=== PATIENT | female | born 2000 | race African-American/Black ===

== ENCOUNTER 2022-05-23 11:25 | Inpatient (IN) | payer SELFPAY ==
[2022-05-23 11:30] VITALS: BP 102/61; PULSE 75; RESP 14; O2SAT 100; BMI 20.3
--- NOTE | 2022-05-23 11:40 | ED.C_ITS ---
HPI - Psych General: Chief Complaint: Psychiatric Symptoms Stated Complaint: SI Time Seen by Provider: 05/23/22 11:32 Source: patient Mode of arrival: EMS Limitations: no limitations History of Present Illness: Patient is a nice 21-year-old female presents to ED today for concerns of suicidal ideations. Patient states these thoughts have progressively worsened over the past several weeks. She states she did go through a break-up a few months ago that she believes may have triggered it. Patient states she is going to sleep with knives. She has thoughts of wanting to run her car into oncoming traffic or overdosing on medication. Patient has no previous suicide attempts. No self harming behaviors. Denies drug or alcohol use. She is not homicidal. She is not experiencing hallucinations. Patient carries no previous psychiatric diagnoses and currently does not take any medications. MD complaint: suicidal ideation and feels depressed Onset (ago): day(s) Duration: constant History of same: Yes Associated psychiatric symptoms: depression and suicidal ideation Associated symptoms: Reports depression and suicidal ideation; Deny auditory hallucinations, visual hallucinations or homicidal ideation Treatments prior to arrival: none If self harm: admits thoughts of self harm Review of Systems Const: Denies: fever(s) or chills Card: Denies: chest pain, palpitations, lightheadedness or syncope Resp: Denies: dyspnea GI: Denies: abdominal pain, nausea, vomiting or diarrhea Skin/Breast: Denies: rash Neuro: Denies: headache(s) Psych: Reports: depression and suicidal ideation; Denies: anxiety, panic attacks, visual hallucinations, auditory hallucinations or homicidal ideation Physical Exam Const: COMMON NORMALS: no acute distress, patient oriented x3, alert and well nourished GENERAL APPEARANCE: cooperative and well kempt Resp: COMMON NORMALS: normal respiratory effort and clear to auscultation bilaterally AUSCULTATION: clear to auscultation bilaterally Cardio: COMMON NORMALS: regular rate and regular rhythm RATE: regular rate RHYTHM: regular rhythm Neuro: COMMON NORMALS: patient oriented x3 SENSORIUM/ORIENTATION: Yes alert Psych: COMMON NORMALS: mental status grossly normal, Normal thought process present, cooperative, normal affect, speech normal, activity/motor behavior normal, denies hallucinations and denies homicidal ideation APPEARANCE: Yes grossly normal and Yes well kempt ATTITUDE: Yes calm ACTIVITY/MOTOR BEHAVIOR: Yes appropriate eye contact and No psychomotor agitation SPEECH: Yes normal speech MOOD & AFFECT: Yes euthymic mood THOUGHT PROCESS: Normal thought process present THOUGHT CONTENT: Yes Suicidality present MEMORY/CO GNITION: Yes memory grossly intact and Yes cognition grossly intact INSIGHT: Good insight present (Psych) JUDGEMENT: Good judgement present (Psych) Course Vital Signs: Vital signs: Vital Signs Pulse Rate 75 05/23/22 11:30 Respiratory Rate 14 05/23/22 11:30 Blood Pressure 102/61 05/23/22 11:30 Pulse Oximetry 100 05/23/22 11:30 Oxygen Delivery Me thod 05/23/22 11:30 MDM - Psych Medical Decision Making Patient will be a psych admit to NPU for Dr. Guzman. She is voluntary at this time. Lab Data 05/23/22 11:35 05/23/22 11:35 Laboratory Results WBC 9.3 10^3/uL (4.0-10.0) 05/23/22 11:35 RBC 4.03 10^6/uL (4.1-5.3) L 05/23/22 11:35 Hgb 11.3 g/dL (11.5-15.3) L 05/23/22 11:35 Hct 36.0 % (37.0-47.0) L 05/23/22 11:35 MCV 89.3 fl (81-99) 05/23/22 11:35 MCH 28.0 pg (28.0-34.0) 05/23/22 11:35 MCHC 31.4 g/dL (30.0-36.0) 05/23/22 11:35 RDW 14.0 % (12.1-15.1) 05/23/22 11:35 Plt Count 404 10^3/cmm (130-400) H 05/23/22 11:35 MPV 9.8 fL (7.4-10.4) 05/23/22 11:35 Neut % (Auto) 70.7 % 05/23/22 11:35 Lymph % (Auto) 21.6 % 05/23/22 11:35 [place] % (Auto) 6.8 % 05/23/22 11:35 Eos % (Auto) 0.1 % 05/23/22 11:35 Baso % (Auto) 0.4 % 05/23/22 11:35 Neut # (Auto) 6.56 10^3/uL (1.8-7.7) 05/23/22 11:35 Lymph # (Auto) 2.0 10^3/uL (0.8-4.8) 05/23/22 11:35 [place] # (Auto) 0.6 10^3/uL (0.2-0.9) 05/23/22 11:35 Eos # (Auto) 0.0 10^3/uL (0.0-0.8) 05/23/22 11:35 Baso # (Auto) 0.0 10^3/uL (0.0-0.1) 05/23/22 11:35 Nucleated RBC % (auto) 0 % 05/23/22 11:35 Nucleated RBCs # 0.0 /100WBC 05/23/22 11:35 Sodium 136 mmol/L (136-145) 05/23/22 11:35 Potassium 4.8 mmol/L (3.5-5.1) 05/23/22 11:35 Chloride 104 mmol/L (98-107) 05/23/22 11:35 Carbon Dioxide 23 mmol/L (22-29) 05/23/22 11:35 Anion Gap 13.8 (5-19) 05/23/22 11:35 BUN 10 mg/dL (6-20) 05/23/22 11:35 Creatinine 0.6 mg/dL (0.5-0.9) 05/23/22 11:35 GFR Calculation 123.9 mL/min (90-130) 05/23/22 11:35 Glucose 84 mg/dL (65-115) 05/23/22 11:35 Calculated Osmolality 280 mOsm/kg (285-295) L 05/23/22 11:35 Calcium 9.0 mg/dL (8.5-10.5) 05/23/22 11:35 Total Bilirubin 1.0 mg/dL (0.15-1.2) 05/23/22 11:35 AST 17 U/L (0-32) 05/23/22 11:35 ALT 8 U/L (0-33) 05/23/22 11:35 Alkaline Phosphatase 59 U/L (35-105) 05/23/22 11:35 Total Protein 7.5 g/dL (6.6-8.7) 05/23/22 11:35 Albumin 4.4 g/dL (3.5-5.2) 05/23/22 11:35 Globulin 3.1 g/dL (1.3-4.6) 05/23/22 11:35 HCG, Qual Negative (Negative) 05/23/22 11:35 Salicylates < 0.3 mg/dL (3-10) L 05/23/22 11:35 Urine Opiates Screen Negative ng/mL (Negative) 05/23/22 11:49 Acetaminophen < 5.0 ug/mL (10-30) L 05/23/22 11:35 Ur Barbiturates Screen Negative ng/mL (Negative) 05/23/22 11:49 Ur Phencyclidine Scrn Negative ng/mL (Negative) 05/23/22 11:49 Ur Amphetamines Screen Negative ng/mL (Negative) 05/23/22 11:49 U Benzodiazepines Scrn Negative ng/mL (Negative) 05/23/22 11:49 Urine Cocaine Screen Negative ng/mL (Negative) 05/23/22 11:49 U Marijuana (THC) Screen Negative ng/mL (Negative) 05/23/22 11:49 Ethyl Alcohol < 10 mg/dL (0-10) 05/23/22 11:35 Discharge Plan Discharge Patient Disposition: Admitted As Inpatient Clinical Impression: Suicidal ideation Condition: Stable Prescriptions: No Action No Known Home Medications Patient Instructions: Opioid Safety, Pain Management Coding Level of Care Code ED Media Assistant for Re Fwd Exam Expanded Problem Focused
[2022-05-23 11:54] LABS: Basophils % 0.4 %; Eosinophils % 0.1 %; Hemoglobin 11.3 g/dL (11.5-15.3); Lymphocytes % 21.6 %; Mean Corpuscular HGB Conc 31.4 g/dL (30.0-36.0); Mean Corpuscular Volume 89.3 fl (81-99); Mean Platelet Volume 9.8 fL (7.4-10.4); Monocytes # 0.6 10^3/uL (0.2-0.9); Monocytes % 6.8 %; Neutrophils # 6.56 10^3/uL (1.8-7.7); Neutrophils % 70.7 %; Nucleated Red Blood Cells % 0 %; Platelet Count 404 10^3/cmm (130-400); Red Blood Count 4.03 10^6/uL (4.1-5.3); White Blood Count 9.3 10^3/uL (4.0-10.0)
[2022-05-23 12:06] LABS: Amphetamines Screen Urine Negative (Negative); Barbiturates Screen Urine Negative (Negative); Benzodiazepines Screen Urine Negative (Negative); Cocaine Screen Urine Negative (Negative); Opiate Screen Urine Negative (Negative); PCP Screen Urine Negative (Negative); THC Screen Urine Negative (Negative)
[2022-05-23 12:11] LABS: HCG, Serum Qual Negative (Negative)
[2022-05-23 12:13] LABS: Alanine Aminotransferase 8 U/L (0-33); Albumin Level 4.4 g/dL (3.5-5.2); Alkaline Phosphatase 59 U/L (35-105); Anion Gap 13.8 (5-19); Aspartate Amino Transferase 17 U/L (0-32); Blood Urea Nitrogen 10 mg/dL (6-20); Carbon Dioxide 23 mmol/L (22-29); Chloride 104 mmol/L (98-107); Globulin 3.1 g/dL (1.3-4.6); Glomerular Filtration Rate 123.9 mL/min (90-130); Glucose 84 mg/dL (65-115); Osmolality Calculated 280 mOsm/kg (285-295); Potassium 4.8 mmol/L (3.5-5.1); Sodium 136 mmol/L (136-145); Total Protein 7.5 g/dL (6.6-8.7)
[2022-05-23 12:15] LABS: Acetaminophen < 5.0 ug/mL (10-30); Alcohol Level < 10 mg/dL (0-10); Salicylate < 0.3 mg/dL (3-10)
--- NOTE | 2022-05-23 14:02 | PC.NURSE ---
Pt tearful in room stating she does not want to stay. Nurse offered 50 mg Hydroxyzine, pt refused.
--- NOTE | 2022-05-23 16:36 | W.ED.PSYCHS ---
HPI - Psych General: Chief Complaint: Psychiatric Symptoms Stated Complaint: SI Time Seen by Provider: 05/23/22 11:32 Source: patient Mode of arrival: EMS History of Present Illness: Duration: constant Treatments prior to arrival: none Course Consultations: Consultation #1: Dr. Guzman-accepts to NPU Vital Signs: Vital signs: Vital Signs Pulse Rate 75 05/23/22 11:30 Respiratory Rate 14 05/23/22 11:30 Blood Pressure 102/61 05/23/22 11:30 Pulse Oximetry 100 05/23/22 11:30 Oxygen Delivery Me thod 05/23/22 11:30 MDM - Psych Lab Data 05/23/22 11:35 05/23/22 11:35 Laboratory Results WBC 9.3 10^3/uL (4.0-10.0) 05/23/22 11:35 RBC 4.03 10^6/uL (4.1-5.3) L 05/23/22 11:35 Hgb 11.3 g/dL (11.5-15.3) L 05/23/22 11:35 Hct 36.0 % (37.0-47.0) L 05/23/22 11:35 MCV 89.3 fl (81-99) 05/23/22 11:35 MCH 28.0 pg (28.0-34.0) 05/23/22 11:35 MCHC 31.4 g/dL (30.0-36.0) 05/23/22 11:35 RDW 14.0 % (12.1-15.1) 05/23/22 11:35 Plt Count 404 10^3/cmm (130-400) H 05/23/22 11:35 MPV 9.8 fL (7.4-10.4) 05/23/22 11:35 Neut % (Auto) 70.7 % 05/23/22 11:35 Lymph % (Auto) 21.6 % 05/23/22 11:35 [facility] % (Auto) 6.8 % 05/23/22 11:35 Eos % (Auto) 0.1 % 05/23/22 11:35 Baso % (Auto) 0.4 % 05/23/22 11:35 Neut # (Auto) 6.56 10^3/uL (1.8-7.7) 05/23/22 11:35 Lymph # (Auto) 2.0 10^3/uL (0.8-4.8) 05/23/22 11:35 [facility] # (Auto) 0.6 10^3/uL (0.2-0.9) 05/23/22 11:35 Eos # (Auto) 0.0 10^3/uL (0.0-0.8) 05/23/22 11:35 Baso # (Auto) 0.0 10^3/uL (0.0-0.1) 05/23/22 11:35 Nucleated RBC % (auto) 0 % 05/23/22 11:35 Nucleated RBCs # 0.0 /100WBC 05/23/22 11:35 Sodium 136 mmol/L (136-145) 05/23/22 11:35 Potassium 4.8 mmol/L (3.5-5.1) 05/23/22 11:35 Chloride 104 mmol/L (98-107) 05/23/22 11:35 Carbon Dioxide 23 mmol/L (22-29) 05/23/22 11:35 Anion Gap 13.8 (5-19) 05/23/22 11:35 BUN 10 mg/dL (6-20) 05/23/22 11:35 Creatinine 0.6 mg/dL (0.5-0.9) 05/23/22 11:35 GFR Calculation 123.9 mL/min (90-130) 05/23/22 11:35 Glucose 84 mg/dL (65-115) 05/23/22 11:35 Calculated Osmolality 280 mOsm/kg (285-295) L 05/23/22 11:35 Calcium 9.0 mg/dL (8.5-10.5) 05/23/22 11:35 Total Bilirubin 1.0 mg/dL (0.15-1.2) 05/23/22 11:35 AST 17 U/L (0-32) 05/23/22 11:35 ALT 8 U/L (0-33) 05/23/22 11:35 Alkaline Phosphatase 59 U/L (35-105) 05/23/22 11:35 Total Protein 7.5 g/dL (6.6-8.7) 05/23/22 11:35 Albumin 4.4 g/dL (3.5-5.2) 05/23/22 11:35 Globulin 3.1 g/dL (1.3-4.6) 05/23/22 11:35 HCG, Qual Negative (Negative) 05/23/22 11:35 Salicylates < 0.3 mg/dL (3-10) L 05/23/22 11:35 Urine Opiates Screen Negative ng/mL (Negative) 05/23/22 11:49 Acetaminophen < 5.0 ug/mL (10-30) L 05/23/22 11:35 Ur Barbiturates Screen Negative ng/mL (Negative) 05/23/22 11:49 Ur Phencyclidine Scrn Negative ng/mL (Negative) 05/23/22 11:49 Ur Amphetamines Screen Negative ng/mL (Negative) 05/23/22 11:49 U Benzodiazepines Scrn Negative ng/mL (Negative) 05/23/22 11:49 Urine Cocaine Screen Negative ng/mL (Negative) 05/23/22 11:49 U Marijuana (THC) Screen Negative ng/mL (Negative) 05/23/22 11:49 Ethyl Alcohol < 10 mg/dL (0-10) 05/23/22 11:35 Discharge Plan Discharge Patient Disposition: Admitted As Inpatient Clinical Impression: Suicidal ideation Condition: Stable Coding Level of Care Code ED Commercial Trailer Truck Driver for Re High
[2022-05-23 17:09] LABS: Influenza A by IFA negative (Negative); Influenza B by IFA negative (Negative)
[2022-05-23 17:12] LABS: SARS Covid-2 Antigen negative (Negative)
[2022-05-23 21:05] VITALS: BP 100/62; PULSE 65; RESP 12; O2SAT 99
[2022-05-23 21:25] VITALS: BP 95/61; PULSE 77; RESP 16; TEMP 36.8; O2SAT 98
[2022-05-24 06:20] VITALS: BP 100/67; PULSE 70; RESP 16; TEMP 37; O2SAT 97
--- NOTE | 2022-05-24 09:08 | W.PM.NPUH&PS ---
Providers/Chief Complaint Admitting Physician: Román Guzman MD Chief Complaint: SI HPI NPU History of Present Illness Sohail Mcfadden is a 21 year old female Chief Complaint: Psychiatric Symptoms Stated Complaint: SI Time Seen by Provider: 05/23/22 11:32 Source: patient Mode of arrival: EMS Limitations: no limitations History of Present Illness: Patient is a nice 21-year-old female presents to ED today for concerns of suicidal ideations. Patient states these thoughts have progressively worsened over the past several weeks. She states she did go through a break-up a few months ago that she believes may have triggered it. Patient states she is going to sleep with knives. She has thoughts of wanting to run her car into oncoming traffic or overdosing on medication. Patient has no previous suicide attempts. No self harming behaviors. Denies drug or alcohol use. She is not homicidal. She is not experiencing hallucinations. Patient carries no previous psychiatric diagnoses and currently does not take any medications. complaint: suicidal ideation and feels depressed Onset (ago): day(s) Duration: constant History of same: Yes Associated psychiatric symptoms: depression and suicidal ideation Associated symptoms: Reports depression and suicidal ideation; Deny auditory hallucinations, visual hallucinations or homicidal ideation Treatments prior to arrival: none If self harm: admits thoughts of self harm She was admitted to the neuropsychiatric unit for definitive treatment of those issues. She has never been on psychiatric medications. She presents today after calling to set up a therapy appointment with an outpatient service and they called the police per their protocol to escort her to the hospital. She has never been psychiatrically hospitalized and has received outpatient services but only for a couple months due to having to serve a mission for the [facility]. She denies using tobacco, cigarettes, marijuana, or any other illicit drug use. She has never had drug and alcohol treatment, DUIs or drug and alcohol related charges. Her mental health issues began presenting when she was around 4 or 5 when said she wanted to and presented again briefly in her early teens due to feeling different from her peers, before returning as anxiety while serving her mission at 17 years old. She reports being adopted at around 4 years old and remembering being in the orphanage in [facility] due to financial issues of raising a child. She endorses that her biological family visited her in the orphanage. She endorses depression with feelings of helplessness, hopelessness, worthlessness, low mood, loss of interest, problems with sleeping, problems with eating, and suicidal ideation. She denies active furtherance and self-injurious behavior. She endorses anxiety with physical symptoms of sweaty palms, feeling short of breath, and racing heart, and denies panic or anxiety attacks. She endorses intrusive thoughts with a mild obsession with washing her hands, twice as much as necessary. She denies paranoia with no delusions noted. She reports having used to have nightmares and flashbacks but not anymore. She reports that she went through a breakup a couple months ago and has been having negative feelings for the past few weeks which is why she called the therapist to get a consultation. She reports she was asked whether she has had suicidal thoughts in the past 30 days and when she endorsed it they called the police and they came to her house. She reports her family doesn?t do mental health or doctors. Psychiatric History: As above. Substance Abuse History: As above. Family History: Unknown due to adoption. Developmental History: She learned to walk and talk and met their developmental milestones on time, and denied any need for speech therapy, learning support, emotional support or special education classes. Psychosocial History: She reports her parents together at her and had several siblings as a product of this union. She describes her childhood as fun but not necessarily easy. She denies emotional, physical and sexual abuse during her childhood and denies any CYS involvement past adoption protocol. She reports having seen people and painful experiences with intercourse but endorses that they were not traumatic to her. She was homeschooled and graduated high school. She endorses being heterosexual with her longest relationship being a year. She has never been , does not have children, has never been in the and does not have a faith belief system. 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 She reports moving down from [place] to [place], [place] in 2008 because of the mansoor she broke up with and because she had family in the state. She reports moving back in with her family later in [place] and that her family had always been in this area. She currently lives in a house with her adoptive mother and father, 20 yr old sister, 15 yr old sister, and 9 yr old sister alongside 5 extended families with 32 kids total. Her adoptive parents had 5 biological children and adopted 25 children. She reports calling two different places to set up an appointment and that she called the FBI to get a follow up on an incident involving a friend crossing state lines to sell weed. Legal History: Denied. Medical History: She denies any allergies to any known medications. She started menstruating at 11 years old with some ongoing issues, missing days of work due to feeling nauseous and sick. Meds NPU Home Medications Medication Instructions Recorded Confirmed Last Taken Type No Known Home Medications 05/23/22 05/23/22 Unknown History Allergies Allergy/AdvReac Type Severity Reaction Status Date / Time No Known Allergies Allergy Verified 05/23/22 11:38 Mental Status Exam MSE Comments: This is a well nourished well developed short -[place] female with adequate grooming and eye contact. No abnormal movements. Cooperative with exam in mild distress. Speech was normal rate and volume. Mood described as good affect anxious. Thought process, organized. Thought content: patient denies suicidal or homicidal ideation, denies paranoia with no delusions noted, and denies any auditory or visual hallucinations. Attention and concentration are intact and memory appeared reliable but none were formally tested. They are alert and oriented three times. Insight and judgment are fair. Impulse control is fair. Vitals/I&O/Wt Last Vital Signs Temp 98.6 F 05/24/22 06:20 Pulse 70 05/24/22 06:20 Resp 16 05/24/22 06:20 BP 100/67 05/24/22 06:20 Pulse Ox 97 05/24/22 06:20 O2 Del Method 05/23/22 21:11 Weight last 48 hrs Weight 52.163 kg Data NPU 05/23/22 11:35 05/23/22 11:35 A&P Assessment and plan (1) Suicidal ideation: (2) MDD (major depressive disorder): Plan This is a 21 year old -[place] female who presents after partner relational problems and mental health issues led her to call outpatient services who called the police on her as per after she endorsed suicidal thoughts in the past 30 days and denies being actively suicidal while endorsing openess to starting medication. We discussed the risks, benefits and alternatives of starting new medications and they understood and agreed to proceed as is documented in this note. 1. Start new medications, 20 mg Prozac 2. Encourage individual, group and milieu therapy 3. Continue q-15 minute check for safety Involuntary Hold Information 96 Hour Hold: 96 Hour Involuntary Admission: No Attestations NPU Medical Necessity Statement*: Inpatient hospitalization is medically necessary and the clinically appropriate intervention at this time. We will monitor medications and make changes as indicated. Patient will be in the hospital for over two midnights. Likely length of stay is three to five days. Coding Level of Care Code Acute Code for [facility] Fwd Diagnoses Suicidal ideation R45.851 MDD (major depressive disorder) F32.9
[2022-05-24 14:00] VITALS: BP 100/67; PULSE 85; RESP 16; TEMP 36.6; O2SAT 100
[2022-05-24] MEDS: fluoxetine 20 mg Capsule PO (18:21)
[2022-05-24 20:37] VITALS: BP 102/67; PULSE 77; RESP 16; TEMP 36.7; O2SAT 100
[2022-05-25] MEDS: fluoxetine 20 mg Capsule PO (10:24)
[2022-05-25 14:00] VITALS: BP 91/61; PULSE 51; RESP 16; TEMP 36.6; O2SAT 99
--- NOTE | 2022-05-25 15:16 | W.PM.NPUDCS ---
Diagnoses at Discharge Discharge Diagnosis (1) Suicidal ideation: Status: Resolved (2) MDD (major depressive disorder): Status: Acute Reason for Visit Reason for Visit: SI Brief History: Sohail Mcfadden is a 21 year old female Chief Complaint: Psychiatric Symptoms Stated Complaint: SI Time Seen by Provider: 05/23/22 11:32 Source: patient Mode of arrival: EMS Limitations: no limitations History of Present Illness: Patient is a nice 21-year-old female presents to ED today for concerns of suicidal ideations. Patient states these thoughts have progressively worsened over the past several weeks. She states she did go through a break-up a few months ago that she believes may have triggered it. Patient states she is going to sleep with knives. She has thoughts of wanting to run her car into oncoming traffic or overdosing on medication. Patient has no previous suicide attempts. No self harming behaviors. Denies drug or alcohol use. She is not homicidal. She is not experiencing hallucinations. Patient carries no previous psychiatric diagnoses and currently does not take any medications. MD complaint: suicidal ideation and feels depressed Onset (ago): day(s) Duration: constant History of same: Yes Associated psychiatric symptoms: depression and suicidal ideation Associated symptoms: Reports depression and suicidal ideation; Deny auditory hallucinations, visual hallucinations or homicidal ideation Treatments prior to arrival: none If self harm: admits thoughts of self harm She was admitted to the neuropsychiatric unit for definitive treatment of those issues. She has never been on psychiatric medications. She presents today after calling to set up a therapy appointment with an outpatient service and they called the police per their protocol to escort her to the hospital. She has never been psychiatrically hospitalized and has received outpatient services but only for a couple months due to having to serve a mission for the [facility] [employer]. She denies using tobacco, cigarettes, marijuana, or any other illicit drug use. She has never had drug and alcohol treatment, DUIs or drug and alcohol related charges. Her mental health issues began presenting when she was around 4 or 5 when said she wanted to and presented again briefly in her early teens due to feeling different from her peers, before returning as anxiety while serving her mission at 17 years old. She reports being adopted at around 4 years old and remembering being in the orphanage in [facility] due to financial issues of raising a child. She endorses that her biological family visited her in the orphanage. She endorses depression with feelings of helplessness, hopelessness, worthlessness, low mood, loss of interest, problems with sleeping, problems with eating, and suicidal ideation. She denies active furtherance and self-injurious behavior. She endorses anxiety with physical symptoms of sweaty palms, feeling short of breath, and racing heart, and denies panic or anxiety attacks. She endorses intrusive thoughts with a mild obsession with washing her hands, twice as much as necessary. She denies paranoia with no delusions noted. She reports having used to have nightmares and flashbacks but not anymore. She reports that she went through a breakup a couple months ago and has been having negative feelings for the past few weeks which is why she called the therapist to get a consultation. She reports she was asked whether she has had suicidal thoughts in the past 30 days and when she endorsed it they called the police and they came to her house. She reports her family doesn?t do mental health or doctors. Psychiatric History: As above. Substance Abuse History: As above. Family History: Unknown due to adoption. Developmental History: She learned to walk and talk and met their developmental milestones on time, and denied any need for speech therapy, learning support, emotional support or special education classes. Psychosocial History: She reports her parents together at her and had several siblings as a product of this union. She describes her childhood as fun but not necessarily easy. She denies emotional, physical and sexual abuse during her childhood and denies any CYS involvement past adoption protocol. She reports having seen people and painful experiences with intercourse but endorses that they were not traumatic to her. She was homeschooled and graduated high school. She endorses being heterosexual with her longest relationship being a year. She has never been , does not have children, has never been in the and does not have a faith belief system. 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 She reports moving down from [place] to [place], [place] in 2008 because of the mansoor she broke up with and because she had family in the state. She reports moving back in with her family later in [place] and that her family had always been in this area. She currently lives in a house with her adoptive mother and father, 20 yr old sister, 15 yr old sister, and 9 yr old sister alongside 5 extended families with 32 kids total. Her adoptive parents had 5 biological children and adopted 25 children. She reports calling two different places to set up an appointment and that she called the FBI to get a follow up on an incident involving a friend crossing state lines to sell weed. Legal History: Denied. Medical History: She denies any allergies to any known medications. She started menstruating at 11 years old with some ongoing issues, missing days of work due to feeling nauseous and sick. Hospital Course Hospital Course She quickly acclimated to the individual, group and milieu therapies provided.? She presented reporting that this was somewhat a misunderstanding. She reports that she had depression but that because she made triggered a response sequence that led to police at her house on a well visit. She was open to initiating Prozac 20 mg p.o. daily. And she had significant movement in her depression and anxiety and had the support of her very large family after discharge. She worked with the treatment team on appropriate discharge planning and aftercare resources.? She was able to contract for safety outside of the hospital prior to discharge.? During the hospitalization, patient had routine laboratory studies which were within normal limits except for few outliers.? Additionally there was a general medical evaluation which was also within normal limits and revealed no new acute processes. Discharge Summary: At the time of discharge, she denied psychosis or lethality.? Mood and anxiety were well managed.? Patient endorsed a plan to avoid all drugs of abuse and follow-up with the aftercare recommendations of the treatment team.? Patient was evaluated and deemed to be absent credible lethality, and had achieved the maximum benefit from an inpatient hospitalization, so was discharged. Involuntary Hold Information 96 Hour Hold: 96 Hour Involuntary Admission: No Mental Status Exam MSE Comments: This is a well nourished well developed short -[place]amb[place] female with adequate grooming and eye contact. No abnormal movements. Cooperative with exam in no acute distress. Speech was normal rate and volume. Mood described as good affect less anxious. Thought process, organized. Thought content: patient denies suicidal or homicidal ideation, denies paranoia with no delusions noted, and denies any auditory or visual hallucinations. Attention and concentration are intact and memory appeared reliable but none were formally tested. They are alert and oriented three times. Insight and judgment are fair. Impulse control is fair. Discharge Data Studies Completed and Pending: Laboratory Results WBC 9.3 10^3/uL (4.0- 10.0) 05/23/22 11:35 RBC 4.03 10^6/uL (4.1 -5.3) L 05/23/22 11:35 Hgb 11.3 g/dL (11.5-1 5.3) L 05/23/22 11:35 Hct 36.0 % (37.0-47.0 ) L 05/23/22 11:35 MCV 89.3 fl (81-99) 05/23/22 11:35 MCH 28.0 pg (28.0-34. 0) 05/23/22 11:35 MCHC 31.4 g/dL (30.0-3 6.0) 05/23/22 11:35 RDW 14.0 % (12.1-15.1 ) 05/23/22 11:35 Plt Count 404 10^3/cmm (130 -400) H 05/23/22 11:35 MPV 9.8 fL (7.4-10.4) 05/23/22 11:35 Neut % (Auto) 70.7 % 05/23/22 11:35 Lymph % (Auto) 21.6 % 05/23/22 11:35 [place] % (Auto) 6.8 % 05/23/22 11:35 Eos % (Auto) 0.1 % 05/23/22 11:35 Baso % (Auto) 0.4 % 05/23/22 11:35 Neut # (Auto) 6.56 10^3/uL (1.8 -7.7) 05/23/22 11:35 Lymph # (Auto) 2.0 10^3/uL (0.8- 4.8) 05/23/22 11:35 [place] # (Auto) 0.6 10^3/uL (0.2- 0.9) 05/23/22 11:35 Eos # (Auto) 0.0 10^3/uL (0.0- 0.8) 05/23/22 11:35 Baso # (Auto) 0.0 10^3/uL (0.0- 0.1) 05/23/22 11:35 Nucleated RBC % (a uto) 0 % 05/23/22 11:35 Nucleated RBCs # 0.0 /100WBC 05/23/22 11:35 Sodium 136 mmol/L (136-1 45) 05/23/22 11:35 Potassium 4.8 mmol/L (3.5-5 .1) 05/23/22 11:35 Chloride 104 mmol/L (98-10 7) 05/23/22 11:35 Carbon Dioxide 23 mmol/L (22-29) 05/23/22 11:35 Anion Gap 13.8 (5-19) 05/23/22 11:35 BUN 10 mg/dL (6-20) 05/23/22 11:35 Creatinine 0.6 mg/dL (0.5-0. 9) 05/23/22 11:35 GFR Calculation 123.9 mL/min (90- 130) 05/23/22 11:35 Glucose 84 mg/dL (65-115) 05/23/22 11:35 Calculated Osmolal ity 280 mOsm/kg (285- 295) L 05/23/22 11:35 Calcium 9.0 mg/dL (8.5-10 .5) 05/23/22 11:35 Total Bilirubin 1.0 mg/dL (0.15-1 .2) 05/23/22 11:35 AST 17 U/L (0-32) 05/23/22 11:35 ALT 8 U/L (0-33) 05/23/22 11:35 Alkaline Phosphata se 59 U/L (35-105) 05/23/22 11:35 Total Protein 7.5 g/dL (6.6-8.7 ) 05/23/22 11:35 Albumin 4.4 g/dL (3.5-5.2 ) 05/23/22 11:35 Globulin 3.1 g/dL (1.3-4.6 ) 05/23/22 11:35 HCG, Qual Negative (Negati ve) 05/23/22 11:35 Salicylates < 0.3 mg/dL (3-10 ) L 05/23/22 11:35 Urine Opiates Scre en Negative ng/mL (N egative) 05/23/22 11:49 Acetaminophen < 5.0 ug/mL (10-3 0) L 05/23/22 11:35 Ur Barbiturates Sc reen Negative ng/mL (N egative) 05/23/22 11:49 Ur Phencyclidine S crn Negative ng/mL (N egative) 05/23/22 11:49 Ur Amphetamines Sc reen Negative ng/mL (N egative) 05/23/22 11:49 U Benzodiazepines Scrn Negative ng/mL (N egative) 05/23/22 11:49 Urine Cocaine Scre en Negative ng/mL (N egative) 05/23/22 11:49 U Marijuana (THC) Screen Negative ng/mL (N egative) 05/23/22 11:49 Ethyl Alcohol < 10 mg/dL (0-10) 05/23/22 11:35 Influenza Type A A g negative (Negati ve) 05/23/22 16:37 Influenza Type B A g negative (Negati ve) 05/23/22 16:37 SARS-CoV-2 Ag (Rap id) negative (Negati ve) 05/23/22 16:37 Vitals: Last Vital Signs Temp 98 F 05/25/22 14:00 Pulse 51 L 05/25/22 14:00 Resp 16 05/25/22 14:00 BP 91/61 05/25/22 14:00 Pulse Ox 99 05/25/22 14:00 O2 Del Method 05/25/22 14:00 Discharge Plan Discharge Patient Disposition: Home Condition: Stable Prescriptions: New fluoxetine 20 mg Capsule 20 mg PO DAILY 30 Days Qty: 30 1RF Discharge Orders: Discharge Order (Routine); Ordered 05/25/22 Ordered By: Román Guzman Discharge Diet: Regular Discharge Activity: Resume usual activity Patient Instructions: Fluoxetine (By mouth) (Fluoxetine HCl, Gaboxetine, Prozac, Prozac Weekly), Depression (DC), Help Prevent Suicide (DC), Opioid Safety, Pain Management Discharge Attestations NPU Time Spent in Discharge Care*: less than 30 min Specific Discharge Activities: Specific discharge activities: educating patient, discussing with disability case manager/social workers/dc planners, documenting/other paperwork and evaluating patient/reviewing data Coding Level of Care Code Acute Chg FW DC note Diagnoses Suicidal ideation R45.851 MDD (major depressive disorder) F32.9
[2022-05-25 15:58] VITALS: BP 91/61; PULSE 51; RESP 16; TEMP 36.6; O2SAT 99
--- NOTE | 2022-05-25 16:15 | PC.NURSE ---
Received verbal permission form [employer] to call hand and hand community transport in order to obtain pt a ride home for her. called Marlee she stated would be around 5 pm before they could arrive at hospital.
--- NOTE | 2022-05-25 16:33 | PC.NURSE ---
discharge orders reviewed, printed, discussed and given to patient pt states understanding.
--- NOTE | 2022-05-26 09:22 | PC.OT ---
OT EVALUATION ORDERS RECEIVED. PATIENT DISCHARGED BEFORE EVALUATION COULD BE COMPLETED.
== END 2022-05-25 17:49 | disposition home or self-care (01) | DRG 881 ==
LOC: ER 16:19 → NP 18:25
PROVIDERS: Admitting Provider Psychiatry & Neurology Psychiatry; Emergency Provider Physician Assistant; Visit Provider Psychiatry & Neurology Psychiatry
DX: F32.9 Major depressive disorder, single episode, unspecified (principal); R45.851 Suicidal ideations
CPT/HCPCS: 80053; 80306; 80307; 84703; 85025; 87426; 87804; 99285